=== PATIENT | male | born 1955 | race Caucasian/White ===

== ENCOUNTER → 2017-02-13 | Outpatient (CLI) | payer BC | END | disposition home or self-care (01) | LOC: Rad HDHVI 09:59 | PROVIDERS: ATTEND Internal Medicine Cardiovascular Disease | DX: I31.3 Pericardial effusion (noninflammatory) (principal); R06.02 Shortness of breath | CPT/HCPCS: 93306; 93880 ==

== ENCOUNTER → 2017-02-27 | Outpatient (CLI) | payer BC, OTHER ==
[~2017-02-27] VITALS: Ht 1 cm; Wt 0.5 kg
[~2017-02-27] MED LIST: AMINOPHYLLINE 250 MG/10 ML VL IV ONE; D5W 5% IV SCH; DIPYRIDAMOLE (5MG/ML) 10 ML VIAL IV ONE; DIPYRIDAMOLE IV SCH; SODIUM CHLORIDE 0.9% 1,000 ML IV ONE
[2017-02-27 11:30] VITALS: BP 97/52
[2017-02-27 12:00] VITALS: BP 131/80
[2017-02-27 13:48] LABS: Albumin 3.8 g/dL (3.4-5.0); Bilirubin, Total 0.5 mg/dL (0.2-1.0); Calcium 8.6 mg/dL (8.5-10.1); Total Protein 7.2 g/dL (6.4-8.2)
[2017-02-27 13:53] LABS: Basophils # (auto) 0 uL; Basophils % (auto) 0.2 % (0.0-2.0); Eosinophils # (auto) 0.1 uL; Eosinophils % (auto) 2.2 % (0.0-7.0); Hematocrit 41.4 % (41.0-53.0); Hemoglobin 13.8 g/dL (13.5-17.5); Lymphocytes # (auto) 1.4 uL; Lymphocytes % (auto) 33.5 % (10.0-50.0); Mean Corpuscular Hemoglobin 30.1 pg (28.0-32.0); Mean Corpuscular Hgb Conc. 33.3 g/dL (32.0-36.0); Mean Corpuscular Volume 90.5 fL (80.0-100.0); Mean Platelet Volume 9.6 fL (6.9-10.8); Monocytes # (auto) 0.3 uL; Monocytes % (auto) 6.2 % (0.0-12.0); Neutrophils # (auto) 2.4 uL; Neutrophils % (auto) 57.9 % (37.0-80.0); Nucleated Red Blood Cells % 0.2 %; Platelet Count (auto) 174 10^3/uL (140-450); Red Cell Distribution Width 13.8 % (11.8-14.3); White Blood Cell 4.1 10^3/uL (4.4-10.8)
== END | disposition home or self-care (01) ==
LOC: Rad HDHVI 09:52
PROVIDERS: ATTEND Internal Medicine Cardiovascular Disease
DX: I10 Essential (primary) hypertension (principal); E78.00 Pure hypercholesterolemia, unspecified; K74.1 Hepatic sclerosis; E11.9 Type 2 diabetes mellitus without complications; R97.20 Elevated prostate specific antigen [PSA]; R53.81 Other malaise; E03.9 Hypothyroidism, unspecified; D64.9 Anemia, unspecified; E55.9 Vitamin D deficiency, unspecified; D51.9 Vitamin B12 deficiency anemia, unspecified
CPT/HCPCS: 36415; 78452; 80053; 80061; 82306; 82607; 83036; 84153; 84403; 84439; 84443; 85025; 93005; 96361; 96374; 96375; A9500; G0463; J1245; 96360

== ENCOUNTER → 2018-04-15 | Outpatient (CLI) | payer MEDICARE | END | disposition home or self-care (01) | LOC: Rad HDHVI 10:03 | PROVIDERS: ATTEND Internal Medicine Cardiovascular Disease | DX: M47.892 Other spondylosis, cervical region (principal); M46.02 Spinal enthesopathy, cervical region | CPT/HCPCS: 72125 ==

== ENCOUNTER → 2019-09-09 | Outpatient (CLI) | payer MEDICARE, BC ==
[~2019-09-09] VITALS: Ht 165.1 cm; Wt 95.3 kg
[~2019-09-09] MED LIST changes: +ADENOSINE 90 MG/30 ML INJ IV ONE; -AMINOPHYLLINE 250 MG/10 ML VL IV ONE; -D5W 5% IV SCH; -DIPYRIDAMOLE (5MG/ML) 10 ML VIAL IV ONE; -DIPYRIDAMOLE IV SCH; -SODIUM CHLORIDE 0.9% 1,000 ML IV ONE
[2019-09-09 11:51] LABS: Basophils # (auto) 0 10 ^3/uL (0-0.2); Basophils % (auto) 0.5 % (0.0-2.0); Eosinophils # (auto) 0.1 10 ^3/uL (0-0.8); Eosinophils % (auto) 2.5 % (0.0-7.0); Hematocrit 42.8 % (41.0-53.0); Hemoglobin 14.2 g/dL (13.5-17.5); Lymphocytes # (auto) 1.2 10 ^3/uL (0.4-5.4); Lymphocytes % (auto) 36.4 % (10.0-50.0); Mean Corpuscular Hemoglobin 30.4 pg (28.0-32.0); Mean Corpuscular Hgb Conc. 33.3 g/dL (32.0-36.0); Mean Corpuscular Volume 91.4 fL (80.0-100.0); Monocytes # (auto) 0.2 10 ^3/uL (0-1.3); Neutrophils # (auto) 1.8 10 ^3/uL (1.6-8.6); Neutrophils % (auto) 54.6 % (37.0-80.0); Nucleated Red Blood Cells % 0.2 %; Platelet Count (auto) 154 10^3/uL (140-450); Red Blood Cells 4.68 10^6/uL (4.5-5.90); Red Cell Distribution Width 13.8 % (11.8-14.3); White Blood Cell 3.4 10^3/uL (4.4-10.8)
[2019-09-09 12:05] LABS: Albumin 3.7 g/dL (3.4-5.0); Calcium 8.4 mg/dL (8.5-10.1); Potassium 4.2 mmol/L (3.5-5.1)
[2019-09-09 12:10] LABS: BUN/Creatinine Ratio 21.2; Bilirubin, Total 0.7 mg/dL (0.2-1.0); Total Protein 7.2 g/dL (6.4-8.2)
[2019-09-09 12:43] LABS: Free T4 (Free Thyroxine) 1.02 ng/dL (0.89-1.76); Prostate Specific Antigen 0.24 ng/mL (0.0-4.0)
== END | disposition home or self-care (01) ==
LOC: Rad HDHVI 08:59
PROVIDERS: ATTEND Internal Medicine Cardiovascular Disease
DX: I11.0 Hypertensive heart disease with heart failure (principal); I50.33 Acute on chronic diastolic (congestive) heart failure; E03.9 Hypothyroidism, unspecified; K90.9 Intestinal malabsorption, unspecified; C61 Malignant neoplasm of prostate; E29.1 Testicular hypofunction; N39.0 Urinary tract infection, site not specified; D51.9 Vitamin B12 deficiency anemia, unspecified; R00.1 Bradycardia, unspecified; R06.02 Shortness of breath; R00.2 Palpitations; Z79.899 Other long term (current) drug therapy; Z00.00 Encounter for general adult medical examination without abnormal findings
CPT/HCPCS: 36415; 78452; 80053; 80061; 82306; 82607; 83036; 84153; 84403; 84439; 84443; 85025; 93017; 93306; 96374; A9500; J0153

== ENCOUNTER → 2020-06-21 | Outpatient (CLI) | payer MEDICARE, BC | END | disposition home or self-care (01) | LOC: Rad HDHVI 09:06 | PROVIDERS: ATTEND Internal Medicine Cardiovascular Disease | DX: M19.012 Primary osteoarthritis, left shoulder (principal); M25.512 Pain in left shoulder | CPT/HCPCS: 73200 ==

== ENCOUNTER → 2020-07-13 | Outpatient (CLI) | payer MEDICARE, BC ==
[2020-07-13 11:49] LABS: Urine Blood Negative /uL (Negative); Urine Specific Gravity 1.035 (1.001-1.035)
[2020-07-13 11:54] LABS: Basophils # (auto) 0 10 ^3/uL (0-0.2); Basophils % (auto) 0.1 % (0.0-2.0); Eosinophils # (auto) 0 10 ^3/uL (0-0.8); Eosinophils % (auto) 0.9 % (0.0-7.0); Hematocrit 40.2 % (41.0-53.0); Hemoglobin 14.3 g/dL (13.5-17.5); Lymphocytes # (auto) 1.6 10 ^3/uL (0.4-5.4); Lymphocytes % (auto) 31.9 % (10.0-50.0); Mean Corpuscular Hemoglobin 31.7 pg (28.0-32.0); Mean Corpuscular Hgb Conc. 35.6 g/dL (32.0-36.0); Mean Corpuscular Volume 89.2 fL (80.0-100.0); Monocytes # (auto) 0.4 10 ^3/uL (0-1.3); Monocytes % (auto) 7.7 % (0.0-12.0); Neutrophils % (auto) 59.4 % (37.0-80.0); Platelet Count (auto) 194 10^3/uL (140-450); Red Blood Cells 4.51 10^6/uL (4.5-5.90); Red Cell Distribution Width 13.9 % (11.8-14.3)
[2020-07-13 11:59] LABS: Albumin 3.9 g/dL (3.4-5.0); Calcium 8.4 mg/dL (8.5-10.1); Potassium 4.2 mmol/L (3.5-5.1)
[2020-07-13 12:03] LABS: Free T4 (Free Thyroxine) 0.92 ng/dL (0.89-1.76); Prostate Specific Antigen 0.17 ng/mL (0.0-4.0)
[2020-07-13 12:04] LABS: BUN/Creatinine Ratio 22.1; Bilirubin, Total 0.5 mg/dL (0.2-1.0); Total Protein 7.4 g/dL (6.4-8.2)
== END | disposition home or self-care (01) ==
LOC: Rad HDHVI 08:12
PROVIDERS: ATTEND Internal Medicine Cardiovascular Disease
DX: C61 Malignant neoplasm of prostate (principal); D51.3 Other dietary vitamin B12 deficiency anemia; I10 Essential (primary) hypertension; E11.9 Type 2 diabetes mellitus without complications; E55.9 Vitamin D deficiency, unspecified; D64.9 Anemia, unspecified; R00.2 Palpitations; R53.1 Weakness; R30.0 Dysuria
CPT/HCPCS: 36415; 80053; 80061; 81003; 82306; 82607; 83036; 84153; 84403; 84439; 84443; 85025; 93306

== ENCOUNTER → 2020-11-17 | Outpatient (CLI) | payer MEDICARE, BC ==
[2020-11-17 12:04] LABS: Basophils # (auto) 0 10 ^3/uL (0-0.2); Basophils % (auto) 0.4 % (0.0-2.0); Eosinophils # (auto) 0.1 10 ^3/uL (0-0.8); Eosinophils % (auto) 1.8 % (0.0-7.0); Hemoglobin 14.1 g/dL (13.5-17.5); Lymphocytes # (auto) 1.5 10 ^3/uL (0.4-5.4); Lymphocytes % (auto) 45.3 % (10.0-50.0); Mean Corpuscular Hemoglobin 31.9 pg (28.0-32.0); Mean Corpuscular Hgb Conc. 35.3 g/dL (32.0-36.0); Mean Corpuscular Volume 90.4 fL (80.0-100.0); Monocytes # (auto) 0.2 10 ^3/uL (0-1.3); Monocytes % (auto) 6.1 % (0.0-12.0); Neutrophils # (auto) 1.5 10 ^3/uL (1.6-8.6); Neutrophils % (auto) 46.4 % (37.0-80.0); Nucleated Red Blood Cells % 0.4 %; Platelet Count (auto) 154 10^3/uL (140-450); Potassium 4.5 mmol/L (3.5-5.1); Red Blood Cells 4.43 10^6/uL (4.5-5.90); Red Cell Distribution Width 13.7 % (11.8-14.3); Urine Blood Negative /uL (Negative); Urine Specific Gravity 1.024 (1.001-1.035); White Blood Cell 3.2 10^3/uL (4.4-10.8)
[2020-11-17 12:14] LABS: Albumin 3.8 g/dL (3.4-5.0); BUN/Creatinine Ratio 19.8; Bilirubin, Total 0.4 mg/dL (0.2-1.0); Calcium 8.8 mg/dL (8.5-10.1); Total Protein 7.2 g/dL (6.4-8.2)
[2020-11-17 12:17] LABS: Free T4 (Free Thyroxine) 1.01 ng/dL (0.89-1.76); Prostate Specific Antigen 0.28 ng/mL (0.0-4.0)
== END | disposition home or self-care (01) ==
LOC: CHF HDHVI 08:03
PROVIDERS: ATTEND Internal Medicine Cardiovascular Disease
DX: C61 Malignant neoplasm of prostate (principal); D51.3 Other dietary vitamin B12 deficiency anemia; I10 Essential (primary) hypertension; E11.9 Type 2 diabetes mellitus without complications; E55.9 Vitamin D deficiency, unspecified; D64.9 Anemia, unspecified; R00.2 Palpitations; R53.1 Weakness; R30.0 Dysuria
CPT/HCPCS: 36415; 80053; 80061; 81003; 82306; 82607; 83036; 84153; 84403; 84439; 84443; 85025; 85049

== ENCOUNTER → 2020-11-28 | Outpatient (CLI) | payer MEDICARE, BC ==
[~2020-11-28] VITALS: Ht 165.1 cm; Wt 102.1 kg
== END | disposition home or self-care (01) ==
LOC: Rad HDHVI 13:59
PROVIDERS: ATTEND Internal Medicine Cardiovascular Disease
DX: I34.2 Nonrheumatic mitral (valve) stenosis (principal); I10 Essential (primary) hypertension; R06.02 Shortness of breath; E78.5 Hyperlipidemia, unspecified; R07.89 Other chest pain; Z82.49 Family history of ischemic heart disease and other diseases of the circulatory system
CPT/HCPCS: 78452; 93017; 96374; A9500

== ENCOUNTER → 2021-12-19 | Outpatient (CLI) | payer MEDICARE, BC | END | disposition home or self-care (01) | LOC: Rad HDHVI 09:24 | PROVIDERS: ATTEND Internal Medicine Cardiovascular Disease | DX: M19.012 Primary osteoarthritis, left shoulder (principal); M19.011 Primary osteoarthritis, right shoulder; M25.712 Osteophyte, left shoulder; M25.711 Osteophyte, right shoulder | CPT/HCPCS: 73030 ==

== ENCOUNTER → 2023-12-30 | Outpatient (CLI) | payer MEDICARE, BC | END | disposition home or self-care (01) | LOC: Rad HDHVI 14:21 | PROVIDERS: ATTEND Internal Medicine Cardiovascular Disease | DX: I10 Essential (primary) hypertension (principal) | CPT/HCPCS: 93880; 93925 ==

== ENCOUNTER → 2024-01-24 | Outpatient (CLI) | payer MEDICARE, BC ==
[~2024-01-24] VITALS: Ht 165.1 cm; Wt 95.3 kg
[~2024-01-24] MED LIST changes: +ADENOSINE 80 MG in GIVE UN-DILUTED 0 ML IV ONE
== END | disposition home or self-care (01) ==
LOC: Rad HDHVI 08:38
PROVIDERS: ATTEND Internal Medicine Cardiovascular Disease
DX: I11.0 Hypertensive heart disease with heart failure (principal); I50.33 Acute on chronic diastolic (congestive) heart failure; E78.5 Hyperlipidemia, unspecified; E11.9 Type 2 diabetes mellitus without complications; C61 Malignant neoplasm of prostate
CPT/HCPCS: 78452; 93005; 96374; 96375; A9500; J0153

== ENCOUNTER 2024-02-09 08:49 | Emergency (ER) | payer MEDICARE, BC ==
[~2024-02-09] VITALS: Ht 165.1 cm; Wt 94.2 kg
[2024-02-09 09:54] VITALS: BP 143/81; PULSE 63; RESP 17; TEMP 98.5; O2SAT 95
== END 2024-02-09 10:21 | disposition home or self-care (01) ==
LOC: ER 08:49
DX: S61.011A Laceration without foreign body of right thumb without damage to nail, initial encounter (principal); W23.0XXA Caught, crushed, jammed, or pinched between moving objects, initial encounter; Y93.89 Activity, other specified; Y92.89 Other specified places as the place of occurrence of the external cause; Y99.8 Other external cause status

== ENCOUNTER → 2024-06-30 | Outpatient (CLI) | payer MEDICARE, BC ==
[2024-06-30 09:18] LABS: Hemoglobin 11.5 g/dL (13.5-17.5); White Blood Cell 3.3 10^3/uL (4.4-10.8)
[2024-06-30 09:22] LABS: Hematocrit 33.3 % (41.0-53.0); Mean Corpuscular Hemoglobin 30.9 pg (28.0-32.0); Mean Corpuscular Hgb Conc. 34.4 g/dL (32.0-36.0); Mean Corpuscular Volume 89.8 fL (80.0-100.0); Platelet Count (auto) 43 10^3/uL (140-450); Red Blood Cells 3.71 10^6/uL (4.5-5.90); Red Cell Distribution Width 16.7 % (11.8-14.3)
[2024-06-30 09:29] LABS: Band Neutrophils % (manual) 0; Basophils % (manual) 0 (0.0-2.0); Blast Cells 0; Eosinophils % (manual) 0 (0-7); Metamyelocytes % 0; Myelocytes % 0; Promyelocytes % 0
[2024-06-30 10:10] LABS: Lymphocytes % (manual) 45 (10.0-50.0); Monocytes % (manual) 29 (0-12); Reactive Lymphocytes 8
[2024-06-30 10:11] LABS: Platelet Estimate Decreased
[2024-06-30 10:33] LABS: Alanine Aminotransferase 12 U/L (7-40); Alkaline Phosphatase 50 U/L (46-116); Anion Gap 8 (5-15); Carbon Dioxide 28 mmol/L (20-31); Chloride 106 mmol/L (98-107); Glucose 85 mg/dL (74-106); Potassium 4.3 mmol/L (3.5-5.1); Sodium 142 mmol/L (136-145)
[2024-06-30 10:34] LABS: BUN/Creatinine Ratio 17.2 (10.0-20.0); Blood Urea Nitrogen 16 mg/dL (9-23)
[2024-06-30 10:36] LABS: Bilirubin, Total 0.6 mg/dL (0.2-1.0); Total Protein 6.8 g/dL (5.7-8.2)
[2024-06-30 10:37] LABS: Albumin 4.8 g/dL (3.2-4.8); Aspartate Aminotransferase 9 U/L (13-40)
[2024-06-30 15:19] LABS: Triglycerides 83 mg/dL (< 150)
[2024-06-30 15:20] LABS: Cholesterol 167 mg/dL (< 200)
[2024-06-30 15:21] LABS: Bilirubin, Direct 0.2 mg/dL (<0.3)
[2024-06-30 15:34] LABS: HDL Cholesterol 38 mg/dL (40-59); LDL Cholesterol 122 mg/dL (< 100)
[2024-07-01 08:07] LABS: Testosterone 387 ng/dL (264-916)
== END | disposition home or self-care (01) ==
LOC: LAB 08:05
PROVIDERS: ATTEND Internal Medicine Cardiovascular Disease
DX: C61 Malignant neoplasm of prostate (principal); I10 Essential (primary) hypertension; E11.9 Type 2 diabetes mellitus without complications; E55.9 Vitamin D deficiency, unspecified; D64.9 Anemia, unspecified; R30.0 Dysuria; R53.1 Weakness
CPT/HCPCS: 36415; 80048; 80061; 80076; 83036; 84153; 84402; 84403; 84443; 85007; 85027

== ENCOUNTER 2024-08-24 13:56 | Inpatient (IN) | payer MEDICARE, BC ==
[~2024-08-24] VITALS: Ht 165.1 cm; Wt 87.5 kg
--- NOTE | 2024-08-24 14:01 | ECG ---
[facility] Test Date: 2024-08-24 Test Time: 14:00:33 Pat Name: RENE REDMOND Department: ER Room: 0284T Gender: M B2B Appointment Setter: GP : 1955 Requested By: LUCIANA ZAIDI Order Number: [id number] Reading MD: Juan Miguel Zamora Measurements Intervals [place] Rate: 97 P: 76 VA: 43 QRS: 25 QRSD: 101 T: 56 QT: 407 QTc: 517 Interpretive Statements Sinus rhythm Paired ventricular premature complexes Short VA interval Borderline ST depression, diffuse leads Borderline prolonged QT interval Baseline wander in lead(s) II,aVR,V1,V2,V3,V4,V5,V6 Electronically Signed On 08-26-2024 21:01:15 PDT by Juan Miguel Zamora Please click the below link to view image of tracing.
--- NOTE | 2024-08-24 14:06 | ED.PDOC ---
History of Present Illness HPI Comments 69 y/o obese M, with a Hx of neuropathy, presents with relative for c/o nonradiating, sternal chest pain and shortness of breath for 2x weeks, today. Patient reports on ongoing symptoms following initial onset. He describes pain as aching in quality and rates it a 6/10 in severity, with no prior history of i n the past. Patient also c/o occasional headaches whenever he is outside in the sun for an extended duration of time. Patient endorses on FMHx of [place] through his father and brother. He denies any nausea. vomiting, fever, chills, or other associated symptoms or modifiers at this time. Chief Complaint: Chest Pain Time Seen by MD: 14:10 Primary Care Provider: unknown Reviewed Notes: Nurses Notes, Medications, Allergies Allergies: Coded Allergies: No Known Drug Allergy (Verified Allergy, Unknown, 02/27/17) Information Source: Patient Mode of Arrival: Wheelchair Severity: Moderate Timing: Weeks Duration: Since onset Prehospital treatment: None Past Medical History Past Medical History (Other): neruopathy, obesity Surgical History (Other): neck surgery Family History Family History: Reviewed,noncontributory to illness, No family hx of Cancer, No family hx of DM, No family hx of HTN, No family hx ofKidney corine, No family hx of Liver corine, No family hx of Lung corine, No family hx of Stroke, Family hx of heart corine ([place]) Social History Smoker: Non-Smoker Alcohol: Denies ETOH Use Drugs: Denies Drug Use Lives In: Home Constitutional: denies: chills, diaphoresis, fatigue, fever, malaise, sweats, weakness, others EENTM: denies: blurred vision, double vision, ear bleeding, ear discharge, ear drainage, ear pain, ear ringing, eye pain, eye redness, hearing loss, mouth pain, mouth swelling, nasal discharge, nose bleeding, nose congestion, nose pain, photophobia, tearing, throat pain, throat swelling, voice changes, others Respiratory: reports: shortness of breath; denies: cough, hemoptysis, orthopnea, SOB at rest, SOB with excertion, stridor, wheezing, others Cardiovascular: reports: chest pain; denies: dizzy spells, diaphoresis, Dyspnea on exertion, edema, irregular heart beat, left arm pain, lightheadedness, palpitations, PND, syncope, others Gastrointestinal: denies: abdomen distended, abdominal pain, blood streaked bowels, constipated, diarrhea, dysphagia, difficulty swallowing, hematemesis, melena, nausea, poor appetite, poor fluid intake, rectal bleeding, rectal pain, vomiting, others Genitourinary: denies: burning, dysuria, flank pain, frequency, hematuria, incontinence, penile discharge, penile sore, pain, testicle pain, testicle swelling, urgency, others Neurological: reports: headache; denies: dizziness, fainting, left sided numbness, left sided weakness, numbness, paresthesia, pre-existing deficit, right sided numbness, right sided weakness, seizure, speech problems, tingling, tremors, weakness, others Musculoskeletal: denies: back pain, gout, joint pain, joint swelling, muscle pain, muscle stiffness, neck pain, others Integumetry: denies: bruises, change in color, change in hair/nails, dryness, laceration, lesions, lumps, rash, wounds, others Allergic/Immunocompromised: denies: Difficulty Healing, Frequent Infections, Hives, Itching, others Hematologic/Lymphatic: denies: anemia, blood clots, easy bleeding, easy bruising, swollen glands, others Endocrine: denies: excessive hunger, excessive sweating, excessive thirst, excessive urination, flushing, intolerance to cold, intolerance to heat, unexplained weight gain, unexplained weight loss, others Psychiatric: denies: anxiety, bipolar disorder, depression, hopeless, panic disorder, schizophrenia, sleepless, suicidal, others All Other Systems: Reviewed and Negative Physical Exam General Appearance: Moderate Distress HEENT: Pale Conjuntivae (L), Pale Conjuntivae (R), Pharynx Normal, TMs Normal Neck: Full Range of Motion, Non-Tender, Normal, Normal Inspection Respiratory: Chest Non-Tender, Lungs Clear, No Accessory Muscle Use, No Respiratory Distress, Normal Breath Sounds Cardiovascular: No Edema, No JVD, No Murmur, No Gallop, Normal Peripheral Pulses, Regular Rate/Rhythm Breast Exam: Deferred Gastrointestinal: No Organomegaly, Non Tender, No Pulsatile Mass, Normal Bowel Sounds, Soft Genitalia: Deferred Pelvic: Deferred Rectal: Deferred Extremities: No calf tenderness, Normal capillary refill, No pedal edema Musculoskeletal : Apperance: Normal Neurologic: Alert, security operations center analyst II-XII nml as Tested, Motor Weakness, Normal Affect, Nor mal Mood, No Sensory Deficits Cerebellar Function: Normal Reflexes: Normal Skin: Dry, Pallor, Warm Lymphatic: No Adenopathy Was a procedure done? Was a procedure done?: No Differential Dx Considerations may include: VT, PE, ACS, URI, PNA, viral syndrome, anxiety, angina, gastritis, among others X-Ray, Labs, Meds, VS Vital Signs Date Time Temp Pulse Resp B/P (MAP) Pulse Ox O2 Delivery O2 Flow Rate FiO2 08/24/24 15:06 72 08/24/24 14:03 97.9 83 18 135/51 (79) 100 97.9 08/24/24 14:00 97 Lab Test 08/24/24 14:44 08/24/24 14:00 Range/Units Troponin I High Sensitivity 4 4 </=54 ng/L White Blood Count 3.1 L 4.4-10.8 10^3/uL Red Blood Count 1.42 L 4.5-5.90 10^6/uL Hemoglobin 4.7 *L 13.5-17.5 g/dL Hematocrit 13.3 L 41.0-53.0 % Mean Corpuscular Volume 93.7 80.0-100.0 fL Mean Corpuscular Hemoglobin 32.9 H 28.0-32.0 pg Mean Corpuscular Hemoglobin Concent 35.1 32.0-36.0 g/dL Red Cell Distribution Width 20.2 H 11.8-14.3 % Platelet Count 114 L 140-450 10^3/uL Mean Platelet Volume 8.3 6.9-10.8 fL Neutrophils (%) (Auto) 37.0-80.0 % Lymphocytes (%) (Auto) 10.0-50.0 % Monocytes (%) (Auto) 0.0-12.0 % Basophils (%) (Auto) 0.0-2.0 % Neutrophils # (Auto) 1.6-8.6 10 ^3/uL Lymphocytes # (Auto) 0.4-5.4 10 ^3/uL Monocytes # (Auto) 0-1.3 10 ^3/uL Differential Total Cells Counted 100.0 100 Neutrophils % (Manual) 6 L 37.0-80.0 Band Neutrophils % (Manual) 0 Lymphocytes % (Manual) 91 H 10.0-50.0 Monocytes % (Manual) 0 0-12 Eosinophils % (Manual) 0 0-7 Basophils % (Manual) 0 0.0-2.0 Metamyelocytes % (manual) 0 Myelocytes % (Manual) 0 Promyelocytes % (Manual) 0 Blast Cells % (Manual) 0 Reactive Lymphocytes 3 Platelet Estimate Decreased Anisocytosis (manual) Slight D-Dimer, Quantitative 0.63 H 0.0-0.49 mg/L FEU Sodium Level 140 136-145 mmol/L Potassium Level 3.8 3.5-5.1 mmol/L Chloride Level 106 98-107 mmol/L Carbon Dioxide Level 23 20-31 mmol/L Anion Gap 11 5-15 Blood Urea Nitrogen 16 9-23 mg/dL Creatinine 1.01 0.700-1.30 mg/dL Glomerular Filtration Rate Calc 80 >90 mL/min BUN/Creatinine Ratio 15.8 10.0-20.0 Serum Glucose 97 74-106 mg/dL Calcium Level 9.3 8.7-10.4 mg/dL Total Bilirubin 0.4 0.2-1.0 mg/dL Aspartate Amino Transferase (AST) 10 L 13-40 U/L Alanine Aminotransferase (ALT) < 9 7-40 U/L Alkaline Phosphatase 53 46-116 U/L B-Type Natriuretic Peptide 100.58 0-100 pg/mL Total Protein 6.8 5.7-8.2 g/dL Albumin 4.6 3.2-4.8 g/dL IV Hep-Lock was established The patient's CBC shows a hemoglobin of 4.7 and hematocrit of 13.3 The patient had thrombocytopenia at 114 The D-dimer is 0.63 which is somewhat elevated The chemistry panel is within normal limits The patient was typed and screened The patient was being transfused with 2 units of packed red blood cells We feel that the patient's chest pain is most likely secondary to ischemia from the severe anemia A cardiology consult will also be obtained The patient is being admitted at this time We discussed the findings with the patient and they are in agreement with the management. Images Reviewed?: Images reviewed and evaluated by me Time of 1ST Reevaluation: 14:40 Reevaluation 1ST: Unchanged Time of 2ND Reevaluation: 16:55 Reevaluation 2ND: Unchanged Patient Education/Counseling: Diagnosis, Treatment, Prognosis Family Education/Counseling: Diagnosis, Treatment, Prognosis Departure 1 Departure Time of Disposition: 16:56 Impression: Primary Impression: Severe anemia Additional Impression: Acute myocardial ischemia Disposition: 09 ADMITTED INPATIENT Admit to: Tele Condition: Fair Critical Care Note Critical Care Time?: Yes (45 min-critical care time only) Stability Stability form required: Yes Unstable for transfer: Telemetry monitoring (Telemetry monitoring required), ED Physician Assesment (Clinical assesment) Heart Score Heart Score: Heart Score Response (Comments) Value History Slightly Suspicious 0 EKG Normal 0 Age >65 2 Risk Factors 1 or 2 risk factors 1 Troponin Normal limit 0 Total 3 I personally scribed for LUCIANA ZAIDI MD ([email or web address]) on 08/24/24 at 14:06. Electronically submitted by Jeremi Ferreira ([email or web address]). I personally scribed for LUCIANA ZAIDI MD ([email or web address]) on 08/24/24 at 14:19. Electronically submitted by Jeremi Ferreira ([email or web address]). LUCIANA ZAIDI MD Aug 24, 2024 14:06
[2024-08-24] MEDS: ASPirin 81 mg TAB PO ONE (14:15)
[2024-08-24 14:23] LABS: Red Cell Distribution Width 20.2 % (11.8-14.3); White Blood Cell 3.1 10^3/uL (4.4-10.8)
[2024-08-24 14:24] LABS: Hematocrit 13.3 % (41.0-53.0); Mean Corpuscular Hemoglobin 32.9 pg (28.0-32.0); Mean Corpuscular Hgb Conc. 35.1 g/dL (32.0-36.0); Mean Corpuscular Volume 93.7 fL (80.0-100.0); Platelet Count (auto) 114 10^3/uL (140-450); Red Blood Cells 1.42 10^6/uL (4.5-5.90)
[2024-08-24 14:32] LABS: Hemoglobin 4.7 g/dL (13.5-17.5)
--- NOTE | 2024-08-24 14:33 | DVH ---
EXAM: XY CHEST TWO VIEWS ROUTINE CLINICAL HISTORY: cp COMPARISON: RSHD2 on DOS: 12/19/21 TECHNIQUE: Frontal and lateral view of the chest was obtained FINDINGS: Lines and Tubes: None Lungs: No focal consolidation. Pleura: No effusion. No pneumothorax. Cardiomediastinal contours: Unremarkable Bones: No acute osseous abnormality. IMPRESSION: No acute cardiopulmonary disease.
[2024-08-24 14:34] LABS: Band Neutrophils % (manual) 0; Basophils % (manual) 0 (0.0-2.0); Blast Cells 0; Eosinophils % (manual) 0 (0-7); Metamyelocytes % 0; Monocytes % (manual) 0 (0-12); Myelocytes % 0; Promyelocytes % 0
[2024-08-24 14:47] LABS: Lymphocytes % (manual) 91 (10.0-50.0); Reactive Lymphocytes 3
[2024-08-24 14:48] LABS: Anisocytosis Slight; Platelet Estimate Decreased
[2024-08-24 14:55] LABS: Alanine Aminotransferase < 9 U/L (7-40); Albumin 4.6 g/dL (3.2-4.8); Alkaline Phosphatase 53 U/L (46-116); Anion Gap 11 (5-15); Aspartate Aminotransferase 10 U/L (13-40); BUN/Creatinine Ratio 15.8 (10.0-20.0); Bilirubin, Total 0.4 mg/dL (0.2-1.0); Blood Urea Nitrogen 16 mg/dL (9-23); Calcium 9.3 mg/dL (8.7-10.4); Carbon Dioxide 23 mmol/L (20-31); Chloride 106 mmol/L (98-107); Glucose 97 mg/dL (74-106); Potassium 3.8 mmol/L (3.5-5.1); Sodium 140 mmol/L (136-145); Total Protein 6.8 g/dL (5.7-8.2)
--- NOTE | 2024-08-24 15:07 | ECG ---
[facility] Test Date: 2024-08-24 Test Time: 15:06:45 Pat Name: RENE REDMOND Department: ER Room: 0284T Gender: M X Ray Physician: TRISTEN : 1955 Requested By: LUCIANA ZAIDI Order Number: [id number] Reading MD: Juan Miguel Zamora Measurements Intervals [place] Rate: 72 P: 58 IN: 208 QRS: 29 QRSD: 99 T: 39 QT: 414 QTc: 454 Interpretive Statements Sinus rhythm Electronically Signed On 08-26-2024 21:02:09 PDT by Juan Miguel Zamora Please click the below link to view image of tracing.
[2024-08-24 17:00] VITALS: PULSE 72; RESP 12; O2SAT 100
[2024-08-24] MEDS ORDERED: NITROGLYCERIN 0.4 MG SL TAB SL PRN (18:45)
[2024-08-24] MEDS ORDERED: ACETAMINOPHEN 325 MG TAB PO PRN (18:45)
[2024-08-24] MEDS ORDERED: MORPHINE SULFATE INJ 2 MG/ml SYRG IV PRN (18:45)
[2024-08-24] MEDS ORDERED: ONDANSETRON HCL 4 MG/2 ML VIAL IV PRN (18:45)
--- NOTE | 2024-08-24 18:50 | DVHHP2 ---
Admitting Diagnosis: Chest pain History of Present Illness 69 y/o obese M, with a Hx of neuropathy, presents with relative for c/o nonradiating, sternal chest pain and shortness of breath for 2x weeks, today. Patient reports on ongoing symptoms following initial onset. He describes pain as aching in quality and rates it a 6/10 in severity, with no prior history of in the past. Patient also c/o occasional headaches whenever he is outside in the sun for an extended duration of time. Patient endorses on FMHx of [place] through his father and brother. He denies any nausea. vomiting, fever, chills, or other associated symptoms or modifiers at this time. Past Medical History (Other): neruopathy, obesity Surgical History (Other): neck surgery Family History Family History: Reviewed,noncontributory to illness, No family hx of Cancer, No family hx of DM, No family hx of HTN, No family hx ofKidney corine, No family hx of Liver corine, No family hx of Lung corine, No family hx of Stroke, Family hx of heart corine ([place]) Social History Smoker: Non-Smoker Alcohol: Denies ETOH Use Drugs: Denies Drug Use Lives In: Home Allergies: Coded Allergies: No Known Drug Allergy (Verified Allergy, Unknown, 02/27/17) Vital Signs Vital Signs Date Time Temp Pulse Resp B/P (MAP) Pulse Ox O2 Delivery O2 Flow Rate FiO2 08/24/24 15:06 72 08/24/24 14:03 97.9 18 135/51 (79) 100 97.9 Physical Exam Generally 69 years old male, well nourished well developed. No apparent distress HEENT-atraumatic, normocephalic Heart-regular rate and rhythm Lungs clear to auscultate bilaterally Abdomen soft nontender nondistended Musculoskeletal-no edema cyanosis Neuro-AO x3, no focal deficits Results Labs Test 08/24/24 14:44 08/24/24 14:00 Range/Units Troponin I High Sensitivity 4 </=54 ng/L White Blood Count 3.1 L 4.4-10.8 10^3/uL Red Blood Count 1.42 L 4.5-5.90 10^6/uL Hemoglobin 4.7 *L 13.5-17.5 g/dL Hematocrit 13.3 L 41.0-53.0 % Mean Corpuscular Volume 93.7 80.0-100.0 fL Mean Corpuscular Hemoglobin 32.9 H 28.0-32.0 pg Mean Corpuscular Hemoglobin Concent 35.1 32.0-36.0 g/dL Red Cell Distribution Width 20.2 H 11.8-14.3 % Platelet Count 114 L 140-450 10^3/uL Mean Platelet Volume 8.3 6.9-10.8 fL Neutrophils (%) (Auto) 37.0-80.0 % Lymphocytes (%) (Auto) 10.0-50.0 % Monocytes (%) (Auto) 0.0-12.0 % Basophils (%) (Auto) 0.0-2.0 % Neutrophils # (Auto) 1.6-8.6 10 ^3/uL Lymphocytes # (Auto) 0.4-5.4 10 ^3/uL Monocytes # (Auto) 0-1.3 10 ^3/uL Differential Total Cells Counted 100.0 100 Neutrophils % (Manual) 6 L 37.0-80.0 Band Neutrophils % (Manual) 0 Lymphocytes % (Manual) 91 H 10.0-50.0 Monocytes % (Manual) 0 0-12 Eosinophils % (Manual) 0 0-7 Basophils % (Manual) 0 0.0-2.0 Metamyelocytes % (manual) 0 Myelocytes % (Manual) 0 Promyelocytes % (Manual) 0 Blast Cells % (Manual) 0 Reactive Lymphocytes 3 Platelet Estimate Decreased Anisocytosis (manual) Slight D-Dimer, Quantitative 0.63 H 0.0-0.49 mg/L FEU Sodium Level 140 136-145 mmol/L Potassium Level 3.8 3.5-5.1 mmol/L Chloride Level 106 98-107 mmol/L Carbon Dioxide Level 23 20-31 mmol/L Anion Gap 11 5-15 Blood Urea Nitrogen 16 9-23 mg/dL Creatinine 1.01 0.700-1.30 mg/dL Glomerular Filtration Rate Calc 80 >90 mL/min BUN/Creatinine Ratio 15.8 10.0-20.0 Serum Glucose 97 74-106 mg/dL Calcium Level 9.3 8.7-10.4 mg/dL Total Bilirubin 0.4 0.2-1.0 mg/dL Aspartate Amino Transferase (AST) 10 L 13-40 U/L Alanine Aminotransferase (ALT) < 9 7-40 U/L Alkaline Phosphatase 53 46-116 U/L B-Type Natriuretic Peptide 100.58 0-100 pg/mL Total Protein 6.8 5.7-8.2 g/dL Albumin 4.6 3.2-4.8 g/dL Primary Diagnosis Chest pain rule out ACS Severe anemia requiring blood transfusion Plan Patient states after turning 68 patient began to notice that he is weaker overall Patient denies any rectal bleeding, melena, hemoptysis diet Check ferritin, iron panel , B12 and folate , reticulocyte count. does not recall any recent colonoscopy Transfuse in ED Hemoglobin goal greater than seven Troponin negative chest pain has resolved. EKG sinus rhythm Check echo of the heart rule out ACS Cardiac diet Full code SCD for DVT prophylaxis GI prophylaxis needed Plan discussed with: Patient Problems List: (1) Acute myocardial ischemia Status: Acute (2) Severe anemia Status: Acute Date of Service: Aug 24, 2024 Billing Provider: RUDOLPH ZAPATA MD Common Visit Codes: [id number] INP/OBS CARE (HIGH) RUDOLPH ZAPATA MD Aug 24, 2024 18:50
[2024-08-24] MEDS: IOHEXOL 350 MG/ML 100ML IJ ONE (19:01)
[2024-08-24 19:43] LABS: % Iron Saturation 48.3 % (20-55)
[2024-08-24 20:01] LABS: Ferritin 590.1 ng/mL (22-322); Folate (Folic Acid) 14.18 ng/mL (>5.38)
--- NOTE | 2024-08-24 20:03 | DVH ---
PROCEDURE: CT CT ANGIO CHEST CONTRAST 08/24/2024 07:11 PM INDICATION: Elevated D-dimer rule out PE COMPARISON: Chest radiograph dated 08/24/2024 TECHNIQUE: Coverage: Thorax IV contrast: Administered Phases: Arterial Multiplanar 3-D Maximum Intensity Projection images (MIP) reconstructions were created by the technlissy guan in the coronal and sagittal planes as part of the CT angiography protocol. Adverse events: None Medication laboratory values were reviewed to verify the patient meets criteria for contrast administ ration. All CT scans at this medical facility are performed using dose modulation techniques as appropriate t o a performed exam including the following: Automated exposure control was utilized; adjustment of th e MA and/or KV according to patient size; and use of iterative reconstruction technique. Radiation dose: CTDIvol 26.9 mGy, DLP 1064.27 mGy*cm. FINDINGS: Cardiovascular: No evidence of acute or chronic pulmonary emboli identified. Aorta is normal in calib er. The heart is normal in size. Pericardial effusion noted. Lungs: No lobar consolidation. Bibasilar subsegmental atelectasis. No pleural effusion. No pneumotho rax. The airways are patent. Thyroid: Unremarkable. Esophagus: Unremarkable. Lymphatics: No hilar lymphadenopathy. A 3.1 cm noncalcified nodule seen in the prevascular space. Bones/soft tissues: No acute abnormality. Upper abdomen: No acute abnormality. A subcentimeter hypodense left hepatic lobe lesion [facility], incompletely evaluated in this exam, most likely a benign cyst. Further evaluation by ultra sound could be completed if clinically indicated. Other: None. IMPRESSION: 1. No evidence of acute pulmonary emboli. 2. Bibasilar subsegmental atelectasis. 3. A 3 cm perivascular space nodule most likely lymphadenopathy. Recommend further evaluation with est CT scan in 3 months.
[2024-08-24 20:14] VITALS: BP 123/53; PULSE 71; RESP 12; TEMP 97.8
[2024-08-24 20:30] VITALS: BP 126/62; PULSE 73; RESP 11; TEMP 98.8
[2024-08-24] MEDS: SODIUM CHLOR 0.9% PF (SALINE LOCK) 10ML VIAL/SYR IV SCH (22:03)
[2024-08-24 22:10] VITALS: BP 120/41; PULSE 72; RESP 11; TEMP 98.4
[2024-08-24 22:35] VITALS: BP 128/42; PULSE 73; RESP 11; TEMP 98.2
[2024-08-24] MEDS: HYDROcodone-ACET 5/325MG TAB PO PRN (22:46)
[2024-08-24 22:55] VITALS: BP 117/50; PULSE 69; RESP 13; TEMP 98.2
[2024-08-25] VITALS (13 sets, daily range): BP systolic 112–139; BP diastolic 46–90; PULSE 72–82; RESP 10–18; TEMP 97.1–99; O2SAT 94–99
[2024-08-25] MEDS: LIDOCAINE 5% TOPICAL PATCH TOP ONE (02:02)
[2024-08-25 06:00] LABS: Hematocrit 13.4 % (41.0-53.0); Red Blood Cells 1.44 10^6/uL (4.5-5.90); White Blood Cell 2.1 10^3/uL (4.4-10.8)
[2024-08-25 06:02] LABS: Mean Corpuscular Hgb Conc. 34.5 g/dL (32.0-36.0); Mean Corpuscular Volume 92.8 fL (80.0-100.0); Platelet Count (auto) 97 10^3/uL (140-450); Red Cell Distribution Width 19.8 % (11.8-14.3)
[2024-08-25 06:14] LABS: Albumin 4.3 g/dL (3.2-4.8); Alkaline Phosphatase 47 U/L (46-116); Anion Gap 10 (5-15); BUN/Creatinine Ratio 17.3 (10.0-20.0); Bilirubin, Total 0.5 mg/dL (0.2-1.0); Blood Urea Nitrogen 14 mg/dL (9-23); Carbon Dioxide 23 mmol/L (20-31); Chloride 106 mmol/L (98-107); Glucose 95 mg/dL (74-106); Potassium 3.9 mmol/L (3.5-5.1); Sodium 139 mmol/L (136-145); Total Protein 6.5 g/dL (5.7-8.2)
[2024-08-25 06:15] LABS: Alanine Aminotransferase < 9 U/L (7-40); Aspartate Aminotransferase 11 U/L (13-40)
[2024-08-25 06:33] LABS: Band Neutrophils % (manual) 0; Basophils % (manual) 0 (0.0-2.0); Eosinophils % (manual) 0 (0-7); Hemoglobin 4.6 g/dL (13.5-17.5); Metamyelocytes % 0; Myelocytes % 0; Promyelocytes % 0
[2024-08-25 08:59] LABS: Platelet Estimate Decreased
--- NOTE | 2024-08-25 15:30 | DVHPN2 ---
Subjective Patient reports generalized weakness. Reviewed: Care Plan, H&P, Medications Changes from previous H/P or p: No Changes General: Per HPI Objective Vitals Vital Signs Date Time Temp Pulse Resp B/P (MAP) Pulse Ox O2 Delivery O2 Flow Rate FiO2 08/25/24 13:20 97.6 75 14 112/47 97.6 08/25/24 09:45 97 08/25/24 08:38 Room Air* 0 N/A Nasal Cannula* Intake/Output Intake and Output 08/25/24 06:59 Intake Total 1200 ml Output Total 0 ml Balance 1200 ml Intake Oral 0 ml Tube Feeding 0 ml Blood Product 1200 ml Other 0 ml Output Urine Total 0 ml General Appearance: Alert, Oriented X3, Cooperative, mild distress HEENT: Atraumatic, PERRLA Lungs: Clear to auscultation, Normal air movement Cardiovascular: Normal S1, Normal S2 Abdomen: Normal bowel sounds, Soft, No tenderness, No hepatospenomegaly Back: Flank Tenderness, Midline Tenderness Extremities: No clubbing, No cyanosis Neuro: Normal gait, Normal speech Skin: Dry, Intact Psych/Mental Status: Mental status NL, Mood NL Medications Current Medications Medications Dose Ordered Sig/Issa Route Start Time Stop Time Status Last Admin Dose Admin Sodium Chloride 10 ml Q8HR IV 08/24/24 22:00 08/25/24 14:14 10 ML Acetaminophen 650 mg Q6HP PRN PO 08/24/24 18:45 Acetaminophen/ Hydrocodone Bitart 1 tab Q4HP PRN PO 08/24/24 18:45 08/24/24 22:46 1 TAB Hydromorphone HCl 0.5 mg Q4HP PRN IV 08/24/24 18:45 Ondansetron HCl 4 mg Q4HP PRN IV 08/24/24 18:45 Nitroglycerin 0.4 mg Q5MINP PRN SL 08/24/24 18:45 Morphine Sulfate 2 mg Q30M PRN IV 08/24/24 18:45 Pantoprazole Sodium 40 mg DAILY IV 08/26/24 10:00 UNV Laboratory Results Laboratory Tests 08/25/24 05:10 Chemistry Test 08/25/24 05:10 Albumin 4.3 g/dL (3.2-4.8) Calcium Level 9.0 mg/dL (8.7-10.4) Total Protein 6.5 g/dL (5.7-8.2) LFT Test 08/25/24 05:10 Alanine Aminotransferase (ALT) < 9 U/L (7-40) Alkaline Phosphatase 47 U/L (46-116) Aspartate Amino Transferase (AST) 11 U/L (13-40) L Total Bilirubin 0.5 mg/dL (0.2-1.0) Labs and/or images reviewed: Labs reviewed by me, Image(s) reviewed by me Assessment/Plan Assessment/Plan Impression: -chest pain -pancytopenia -chronic pain syndrome -history of spinal surgery -obesity Plan: -patient received 2 units PRBCs without any improvement with the patient was anemia. Long discussion made with the patient with regards to current symptoms. Patient denies having any signs of GI bleeding. Patient noted to have lymphocytosis, decreased neutrophils. -hematology consultation -check LDH, vitamin-D, B12, folic acid, haptoglobin, direct indirect Ranjana test -continue with additional 2 units PRBC -peripheral stain -repeat labs in a.m. -transferred to telemetry floor Total time spent with patient discussing and formulating plan of care: 35 minutes. This medical document was created using an electronic medical record system with [employer] dictation system. Although this document has been carefully reviewed, there may still be some phonetic and typographical errors. These areas are purely typographical due to imperfections of the software programs, and do not reflect any compromise in the patient's medical care. Plan discussed with: Patient, Other (RN) My Orders Orders - ANTHONY DIAZ POSTING SPECIALIST Procedure Category Date Status Time Gastric Occult Blood LAB 08/25/24 Logged 14:00 Pantoprazole PHA 08/26/24 Logged (Protonix) 10:00 Ramsay Stain Slide LAB 08/25/24 In Process 14:48 *Consult Dr. Whitehead CONS 08/25/24 Transmitted [place] 14:48 Direct Ranjana BBK 08/25/24 Logged 14:48 Vitamin B1 (Thiamine) LAB 08/25/24 Logged 14:48 Vitamin D 25-Hydroxy LAB 08/25/24 Logged D2 + D3 14:48 Haptoglobin LAB 08/25/24 Logged 14:48 Urinalysis LAB 08/25/24 Logged 14:48 * Hematology/Oncology CONS 08/25/24 Transmitted Consult 14:53 Transfer Orders XFER 08/25/24 Transmitted 15:16 Date of Service: Aug 25, 2024 Billing Provider: ANTHONY DIAZ NP Common Visit Codes: [id number] INP/OBS CARE(HIGH) ANTHONY DIAZ NP Aug 25, 2024 15:30
[2024-08-25 20:27] LABS: Hematocrit 20.8 % (41.0-53.0); Hemoglobin 7.1 g/dL (13.5-17.5)
[2024-08-26] VITALS (8 sets, daily range): BP systolic 113–131; BP diastolic 61–83; PULSE 64–77; RESP 18; TEMP 97.9–98.6; O2SAT 96–99
[2024-08-26 06:29] LABS: White Blood Cell 2.2 10^3/uL (4.4-10.8)
[2024-08-26 06:34] LABS: Hematocrit 21.4 % (41.0-53.0); Hemoglobin 7.4 g/dL (13.5-17.5); Mean Corpuscular Hemoglobin 31.3 pg (28.0-32.0); Mean Corpuscular Hgb Conc. 34.5 g/dL (32.0-36.0); Mean Corpuscular Volume 90.7 fL (80.0-100.0); Platelet Count (auto) 99 10^3/uL (140-450); Red Blood Cells 2.36 10^6/uL (4.5-5.90); Red Cell Distribution Width 18.6 % (11.8-14.3)
[2024-08-26 06:52] LABS: Band Neutrophils % (manual) 0; Basophils % (manual) 0 (0.0-2.0); Eosinophils % (manual) 0 (0-7); Metamyelocytes % 0; Myelocytes % 0; Promyelocytes % 0; Reactive Lymphocytes 0
[2024-08-26 06:54] LABS: Alanine Aminotransferase 10 U/L (7-40); Albumin 4.4 g/dL (3.2-4.8); Alkaline Phosphatase 50 U/L (46-116); Anion Gap 10 (5-15); Aspartate Aminotransferase 15 U/L (13-40); BUN/Creatinine Ratio 15.4 (10.0-20.0); Blood Urea Nitrogen 12 mg/dL (9-23); Calcium 9.3 mg/dL (8.7-10.4); Carbon Dioxide 23 mmol/L (20-31); Glucose 97 mg/dL (74-106); Potassium 3.6 mmol/L (3.5-5.1); Sodium 142 mmol/L (136-145); Total Protein 6.4 g/dL (5.7-8.2)
[2024-08-26 06:55] LABS: Bilirubin, Total 0.9 mg/dL (0.2-1.0)
[2024-08-26 06:59] LABS: Chloride 109 mmol/L (98-107)
[2024-08-26 08:07] LABS: Haptoglobin 271 mg/dL (34-355)
--- NOTE | 2024-08-26 10:00 | DVHPN2 ---
Subjective Patient reports generalized weakness. Reviewed: Care Plan, H&P, Medications Changes from previous H/P or p: No Changes General: Per HPI Objective Vitals Vital Signs Date Time Temp Pulse Resp B/P (MAP) Pulse Ox O2 Delivery O2 Flow Rate FiO2 08/26/24 09:02 98.2 69 18 123/61 (81) 99 98.2 08/25/24 20:00 Room Air* 0 21 Intake/Output Intake and Output 08/26/24 07:00 Intake Total 1550 ml Output Total 0 ml Balance 1550 ml Intake Oral 350 ml Blood Product 1200 ml Other 0 ml Output Urine Total 0 ml # Voids 2 # Bowel Movements 1 General Appearance: Alert, Oriented X3, Cooperative, mild distress HEENT: Atraumatic, PERRLA Lungs: Clear to auscultation, Normal air movement Cardiovascular: Normal S1, Normal S2 Abdomen: Normal bowel sounds, Soft, No tenderness, No hepatospenomegaly Back: Flank Tenderness, Midline Tenderness Extremities: No clubbing, No cyanosis Neuro: Normal gait, Normal speech Skin: Dry, Intact Psych/Mental Status: Mental status NL, Mood NL Medications Current Medications Medications Dose Ordered Sig/Issa Route Start Time Stop Time Status Last Admin Dose Admin Sodium Chloride 10 ml Q8HR IV 08/24/24 22:00 08/26/24 05:04 10 ML Acetaminophen 650 mg Q6HP PRN PO 08/24/24 18:45 Acetaminophen/ Hydrocodone Bitart 1 tab Q4HP PRN PO 08/24/24 18:45 08/24/24 22:46 1 TAB Hydromorphone HCl 0.5 mg Q4HP PRN IV 08/24/24 18:45 Ondansetron HCl 4 mg Q4HP PRN IV 08/24/24 18:45 Nitroglycerin 0.4 mg Q5MINP PRN SL 08/24/24 18:45 Morphine Sulfate 2 mg Q30M PRN IV 08/24/24 18:45 Pantoprazole Sodium 40 mg DAILY IV 08/26/24 10:00 Alprazolam 0.25 mg Q8HP PRN PO 08/26/24 10:00 UNV Laboratory Results Laboratory Tests 08/26/24 05:18 Chemistry Test 08/26/24 05:18 Albumin 4.4 g/dL (3.2-4.8) Calcium Level 9.3 mg/dL (8.7-10.4) Total Protein 6.4 g/dL (5.7-8.2) LFT Test 08/26/24 05:18 Alanine Aminotransferase (ALT) 10 U/L (7-40) Alkaline Phosphatase 50 U/L (46-116) Aspartate Amino Transferase (AST) 15 U/L (13-40) Total Bilirubin 0.9 mg/dL (0.2-1.0) Labs and/or images reviewed: Labs reviewed by me, Image(s) reviewed by me Assessment/Plan Assessment/Plan Impression: -chest pain -pancytopenia -chronic pain syndrome -history of spinal surgery -obesity Plan: -events: H&H improved after 4th unit PRBC. Continues to have leukopenia, thrombocytopenia. Haptoglobin, LDH noncontributory. Ranjana test negative. Discussed with the patient the need for bone marrow biopsy. Patient somewhat challenging, difficult to treat due to his behaviors. Also discussed with his the need for bone marrow biopsy. They are both in agreement. -hematology consultation -check LDH, vitamin-D, B12, folic acid, haptoglobin, direct indirect Ranjana test -continue with additional 2 units PRBC -peripheral stain -repeat labs in a.m. Total time spent with patient discussing and formulating plan of care: 35 minutes. This medical document was created using an electronic medical record system with [employer] dictation system. Although this document has been carefully reviewed, there may still be some phonetic and typographical errors. These areas are purely typographical due to imperfections of the software programs, and do not reflect any compromise in the patient's medical care. Plan discussed with: Patient, Other (RN) My Orders Orders - ANTHONY DIAZ [employer] Procedure Category Date Status Time Gastric Occult Blood LAB 08/25/24 Logged 14:00 Pantoprazole PHA 08/26/24 In Process (Protonix) 10:00 *Consult Dr. Whitehead CONS 08/25/24 Transmitted [place] 14:48 Vitamin B1 (Thiamine) LAB 08/25/24 In Process 14:48 Vitamin D 25-Hydroxy LAB 08/25/24 In Process D2 + D3 14:48 Haptoglobin LAB 08/25/24 In Process 14:48 Urinalysis LAB 08/25/24 Logged 14:48 * Hematology/Oncology CONS 08/25/24 Transmitted Consult 14:53 Transfer Orders XFER 08/25/24 Transmitted 15:16 * Radiologist Consult CONS 08/26/24 Transmitted 09:54 Alprazolam Tablet PHA 08/26/24 Logged (Xanax Tablet) 10:00 Date of Service: Aug 26, 2024 Billing Provider: ANTHONY DIAZ NP Common Visit Codes: [id number] INP/OBS CARE(HIGH) ANTHONY DIAZ NP Aug 26, 2024 10:00
[2024-08-26] MEDS: PANTOPRAZOLE 40 MG/10 ML VIAL INJ IV SCH (10:38)
[2024-08-26] MEDS: LIDOCAINE 2%HCL (LOCAL ANESTH.) INJ 10ml MDV ONE (10:52)
[2024-08-26 11:01] LABS: Lymphocytes % (manual) 53 (10.0-50.0)
[2024-08-26 11:02] LABS: Monocytes % (manual) 4 (0-12)
[2024-08-26 11:03] LABS: Blast Cells 34
[2024-08-26 11:04] LABS: Reactive Lymphocytes 5
[2024-08-26 11:13] LABS: INR 1.09 (0.9-1.15); Partial Thromboplastin Time 25.9 SEC (24.5-34.5); Prothrombin Time 11.5 sec (9.3-11.8)
[2024-08-26 11:50] LABS: Blast Cells 58; Lymphocytes % (manual) 29 (10.0-50.0); Monocytes % (manual) 5 (0-12)
[2024-08-26 11:51] LABS: Large Platelets FEW; Platelet Estimate Decreased
--- NOTE | 2024-08-26 13:02 | DVHPN2 ---
Progress Note - Dictate Date Seen: Aug 25, 2024 Medical Necessity Reason Pt with a Central, PICC or Fol: No Subjective PT WITH CHEST PAIN PANCYTOPENIA ? MYELODYSPLASTIC SYNDROME/ LEUKEMIA CHRONIC PAIN LUCIANO HX OF HTN STRESS CARDIOLITE NL ECHO EF >55% vital signs Vital Sign Date Time Temp Pulse Resp B/P (MAP) Pulse Ox O2 Delivery O2 Flow Rate FiO2 08/26/24 09:02 98.2 69 18 123/61 (81) 99 98.2 08/25/24 20:00 Room Air* 0 21 Total Intake and Output 08/25/24 08/25/24 08/26/24 15:00 23:00 07:00 Intake Total 600 ml 600 ml 350 ml Output Total 0 ml 0 ml Balance 600 ml 600 ml 350 ml medications Current Medications Medications Dose Ordered Sig/Issa Route Start Time Stop Time Status Last Admin Dose Admin Sodium Chloride 10 ml Q8HR IV 08/24/24 22:00 08/26/24 05:04 10 ML Acetaminophen 650 mg Q6HP PRN PO 08/24/24 18:45 Acetaminophen/ Hydrocodone Bitart 1 tab Q4HP PRN PO 08/24/24 18:45 08/24/24 22:46 1 TAB Hydromorphone HCl 0.5 mg Q4HP PRN IV 08/24/24 18:45 Ondansetron HCl 4 mg Q4HP PRN IV 08/24/24 18:45 Nitroglycerin 0.4 mg Q5MINP PRN SL 08/24/24 18:45 Morphine Sulfate 2 mg Q30M PRN IV 08/24/24 18:45 Pantoprazole Sodium 40 mg DAILY IV 08/26/24 10:00 08/26/24 10:38 40 MG Alprazolam 0.25 mg Q8HP PRN PO 08/26/24 10:00 UNV laboratory and microbiology Laboratory Tests 08/26/24 05:18 Test 08/26/24 05:18 Range/Units Serum Glucose 97 74-106 mg/dL Problem List CHEST PAIN PANCYTOPENIA ? MYELODYSPLASTIC SYNDROME/ LEUKEMIA CHRONIC PAIN LUCIANO HX OF HTN STRESS CARDIOLITE NL ECHO EF >55% Assessment/Plan HEMATOLOGY CONSULT BONE MARROW BIOPSY TRANSFUSE NON CARDIAC CHEST PAIN SECONDARY TO SEVERE ANEMIA HIGH OUTPUT SYNDROME REVERSE ISOLATION Plan discussed with: Patient, Spouse Critical Care Time(min): 35 CC Plasma Assessment Blood Product Administration S: 09 EMILY MUKHERJEE MD Aug 26, 2024 13:02
[2024-08-26] MEDS: MIDAZOLAM HCL 2MG/2ML 2ml VIAL (1mg/ml) IV ONE (13:30)
[2024-08-26] MEDS: fentaNYL CITRATE 100 MCG/2 ML VL IV ONE (13:30)
--- NOTE | 2024-08-26 15:09 | DVH ---
CT PELVIS WO CONTRAST, HISTORY: BONE MARROW BX COMPARISON: None PROCEDURE: Informed consent and time-out was performed before the procedure. Conscious sedation was p erformed by the interventional radiology nurse. The left posterior pelvic bone was marked, sterilized , draped, and locally anesthetized using approximately 8 ml of 1% lidocaine. Axial CT images were use d for localization. A 11 gauge [employer] Bone Biopsy kit was used to take 12 mL aspirate and 1 core. The biopsy needle was then removed. No immediate complications noted. FINDINGS: Axial CT images demonstrates biopsy needle within the left posterior pelvic bone. IMPRESSION: Successful CT-guided biopsy of the left posterior pelvic bone.
[2024-08-26] MEDS: HYDROmorphone HCL 2 MG/ML VL/or syr IV PRN (17:11)
[2024-08-26 22:23] LABS: Hematocrit 22.1 % (41.0-53.0); Hemoglobin 7.6 g/dL (13.5-17.5)
[2024-08-27] VITALS (7 sets, daily range): BP systolic 121–133; BP diastolic 61–73; PULSE 65–78; RESP 18; TEMP 97.6–98.7; O2SAT 94–99
[2024-08-27 07:08] LABS: Alanine Aminotransferase 14 U/L (7-40); Albumin 4.4 g/dL (3.2-4.8); Alkaline Phosphatase 50 U/L (46-116); Anion Gap 12 (5-15); Aspartate Aminotransferase 17 U/L (13-40); BUN/Creatinine Ratio 19.7 (10.0-20.0); Bilirubin, Total 0.9 mg/dL (0.2-1.0); Blood Urea Nitrogen 15 mg/dL (9-23); Calcium 9.4 mg/dL (8.7-10.4); Carbon Dioxide 21 mmol/L (20-31); Glucose 92 mg/dL (74-106); Potassium 3.5 mmol/L (3.5-5.1); Sodium 142 mmol/L (136-145); Total Protein 6.5 g/dL (5.7-8.2)
[2024-08-27 07:09] LABS: Chloride 109 mmol/L (98-107)
[2024-08-27 07:14] LABS: Hemoglobin 7.4 g/dL (13.5-17.5); Platelet Count (auto) 100 10^3/uL (140-450)
[2024-08-27 07:18] LABS: Hematocrit 21.3 % (41.0-53.0); Mean Corpuscular Hemoglobin 30.7 pg (28.0-32.0); Mean Corpuscular Hgb Conc. 34.5 g/dL (32.0-36.0); Mean Corpuscular Volume 88.9 fL (80.0-100.0); Red Cell Distribution Width 18.2 % (11.8-14.3)
[2024-08-27 07:22] LABS: White Blood Cell 1.7 10^3/uL (4.4-10.8)
[2024-08-27 07:23] LABS: Band Neutrophils % (manual) 0; Basophils % (manual) 0 (0.0-2.0); Eosinophils % (manual) 0 (0-7); Metamyelocytes % 0; Myelocytes % 0; Promyelocytes % 0; Reactive Lymphocytes 0
[2024-08-27 08:09] LABS: Urine Bacteria None Seen /hpf (None Seen)
--- NOTE | 2024-08-27 08:19 | DVHPN2 ---
Progress Note - Dictate Date Seen: Aug 27, 2024 Medical Necessity Reason Pt with a Central, PICC or Fol: No Subjective PT WITH CHEST PAIN PANCYTOPENIA ? MYELODYSPLASTIC SYNDROME/ LEUKEMIA CHRONIC PAIN LUCIANO HX OF HTN STRESS CARDIOLITE NL ECHO EF >55% vital signs Vital Sign Date Time Temp Pulse Resp B/P (MAP) Pulse Ox O2 Delivery O2 Flow Rate FiO2 08/27/24 05:00 98.7 77 18 121/68 (85) 98 98.7 08/26/24 20:00 Room Air* 0 21 Total Intake and Output 08/26/24 08/26/24 08/27/24 15:00 23:00 07:00 Intake Total 1000 ml 250 ml Balance 1000 ml 250 ml medications Current Medications Medications Dose Ordered Sig/Issa Route Start Time Stop Time Status Last Admin Dose Admin Sodium Chloride 10 ml Q8HR IV 08/24/24 22:00 08/27/24 05:50 10 ML Acetaminophen 650 mg Q6HP PRN PO 08/24/24 18:45 Acetaminophen/ Hydrocodone Bitart 1 tab Q4HP PRN PO 08/24/24 18:45 08/24/24 22:46 1 TAB Hydromorphone HCl 0.5 mg Q4HP PRN IV 08/24/24 18:45 08/26/24 17:11 0.5 MG Ondansetron HCl 4 mg Q4HP PRN IV 08/24/24 18:45 Nitroglycerin 0.4 mg Q5MINP PRN SL 08/24/24 18:45 Morphine Sulfate 2 mg Q30M PRN IV 08/24/24 18:45 Pantoprazole Sodium 40 mg DAILY IV 08/26/24 10:00 08/26/24 10:38 40 MG Alprazolam 0.25 mg Q8HP PRN PO 08/26/24 10:00 laboratory and microbiology Laboratory Tests 08/27/24 05:48 Test 08/27/24 05:48 Range/Units Serum Glucose 92 74-106 mg/dL Problem List CHEST PAIN PANCYTOPENIA ? MYELODYSPLASTIC SYNDROME/ LEUKEMIA CHRONIC PAIN LUCIANO HX OF HTN STRESS CARDIOLITE NL ECHO EF >55% Assessment/Plan HEMATOLOGY CONSULT BONE MARROW BIOPSY TRANSFUSE NON CARDIAC CHEST PAIN SECONDARY TO SEVERE ANEMIA HIGH OUTPUT SYNDROME REVERSE ISOLATION S/P BONE MARROW BX Plan discussed with: Patient CC Plasma Assessment Blood Product Administration S: [id number] EMILY MUKHERJEE MD Aug 27, 2024 08:19
[2024-08-27 08:46] LABS: Urine Blood Negative /uL (Negative); Urine Clarity Turbid (Clear); Urine Color Yellow (Yellow); Urine Mucus MODERATE (None Seen); Urine Protein, UAD TRACE (Negative); Urine Squamous Epithelial Cell FEW /hpf (<5); Urine Urobilinogen Normal (Negative); Urine WBC 3 /HPF (0-3); Urine pH 5.5 (5.0-9.0)
[2024-08-27 10:14] LABS: Blast Cells 48; Lymphocytes % (manual) 42 (10.0-50.0); Monocytes % (manual) 4 (0-12); Platelet Estimate Decreased
--- NOTE | 2024-08-27 12:00 | DVHPN2 ---
Subjective Patient reports generalized weakness. Reviewed: Care Plan, H&P, Medications Changes from previous H/P or p: No Changes General: Per HPI Objective Vitals Vital Signs Date Time Temp Pulse Resp B/P (MAP) Pulse Ox O2 Delivery O2 Flow Rate FiO2 08/27/24 09:00 98.0 65 18 131/73 (92) 98 98.0 08/27/24 08:00 Room Air* 0 21 Intake/Output Intake and Output 08/27/24 07:00 Intake Total 1250 ml Balance 1250 ml Intake Oral 1250 ml # Voids 8 # Bowel Movements 1 General Appearance: Alert, Oriented X3, Cooperative, mild distress HEENT: Atraumatic, PERRLA Lungs: Clear to auscultation, Normal air movement Cardiovascular: Normal S1, Normal S2 Abdomen: Normal bowel sounds, Soft, No tenderness, No hepatospenomegaly Back: Flank Tenderness, Midline Tenderness Extremities: No clubbing, No cyanosis Neuro: Normal gait, Normal speech Skin: Dry, Intact Psych/Mental Status: Mental status NL, Mood NL Medications Current Medications Medications Dose Ordered Sig/Issa Route Start Time Stop Time Status Last Admin Dose Admin Sodium Chloride 10 ml Q8HR IV 08/24/24 22:00 08/27/24 05:50 10 ML Acetaminophen 650 mg Q6HP PRN PO 08/24/24 18:45 Acetaminophen/ Hydrocodone Bitart 1 tab Q4HP PRN PO 08/24/24 18:45 08/24/24 22:46 1 TAB Hydromorphone HCl 0.5 mg Q4HP PRN IV 08/24/24 18:45 08/26/24 17:11 0.5 MG Ondansetron HCl 4 mg Q4HP PRN IV 08/24/24 18:45 Nitroglycerin 0.4 mg Q5MINP PRN SL 08/24/24 18:45 Morphine Sulfate 2 mg Q30M PRN IV 08/24/24 18:45 Pantoprazole Sodium 40 mg DAILY IV 08/26/24 10:00 08/27/24 09:44 40 MG Alprazolam 0.25 mg Q8HP PRN PO 08/26/24 10:00 Laboratory Results Laboratory Tests 08/27/24 05:48 Chemistry Test 08/27/24 05:48 Albumin 4.4 g/dL (3.2-4.8) Calcium Level 9.4 mg/dL (8.7-10.4) Total Protein 6.5 g/dL (5.7-8.2) LFT Test 08/27/24 05:48 Alanine Aminotransferase (ALT) 14 U/L (7-40) Alkaline Phosphatase 50 U/L (46-116) Aspartate Amino Transferase (AST) 17 U/L (13-40) Total Bilirubin 0.9 mg/dL (0.2-1.0) Urinalysis Test 08/27/24 07:32 Urine Color Yellow (Yellow) Urine Clarity Turbid (Clear) H Urine pH 5.5 (5.0-9.0) Urine Specific [place] 1.030 (1.001-1.035) Urine Protein Trace (Negative) H Urine Ketones 1+ (Negative) H Urine Blood Negative /uL (Negative) Urine Nitrite Negative (Negative) Urine Bilirubin Negative (Negative) Urine Urobilinogen Normal mg/dL (Negative) Urine Leukocyte Esterase Negative /uL (Negative) Urine RBC 2 /hpf (0 - 3) Urine Microscopic WBC 3 /HPF (0-3) Urine Squamous Epithelial Cells Few /hpf (<5) Urine Bacteria None seen /hpf (None Seen) Urine Mucus Moderate (None Seen) Urine Glucose Normal mg/dL (Normal) Labs and/or images reviewed: Labs reviewed by me, Image(s) reviewed by me Assessment/Plan Assessment/Plan Impression: -chest pain -pancytopenia -chronic pain syndrome -history of spinal surgery -obesity -rule out acute leukemia/versus myelodysplastic syndrome Plan: -events: Long discussion made with the patient regarding differential diagnosis including leukemia and myelodysplastic syndrome. Given the patient's worsening neutropenia, patient will be placed in reverse isolation. Flow cytometry currently pending. -hematology consultation -check LDH, vitamin-D, B12, folic acid, haptoglobin, direct indirect Ranjana test -continue with additional 2 units PRBC -peripheral stain -repeat labs in a.m. Total time spent with patient discussing and formulating plan of care: 35 minutes. This medical document was created using an electronic medical record system with [employer] system. Although this document has been carefully reviewed, there may still be some phonetic and typographical errors. These areas are purely typographical due to imperfections of the software programs, and do not reflect any compromise in the patient's medical care. Plan discussed with: Patient, Other (RN) Date of Service: Aug 27, 2024 Billing Provider: ANTHONY DIAZ NP Common Visit Codes: [id number] INP/OBS CARE(HIGH) ANTHONY DIAZ NP Aug 27, 2024 12:00
[2024-08-27] MEDS: LOPERAMIDE HCL 2 MG CAP/TAB PO PRN (12:58)
[2024-08-27] MEDS: ALPRAZolam 0.25 MG TAB PO PRN (15:52)
[2024-08-28 05:00] VITALS: BP 112/55; PULSE 67; RESP 18; TEMP 98; O2SAT 100
[2024-08-28 07:51] LABS: Hematocrit 21.7 % (41.0-53.0); Hemoglobin 7.7 g/dL (13.5-17.5); Mean Corpuscular Hemoglobin 31.4 pg (28.0-32.0); Mean Corpuscular Hgb Conc. 35.4 g/dL (32.0-36.0); Mean Corpuscular Volume 88.6 fL (80.0-100.0); Platelet Count (auto) 97 10^3/uL (140-450); Red Blood Cells 2.45 10^6/uL (4.5-5.90); Red Cell Distribution Width 18.4 % (11.8-14.3)
[2024-08-28 08:04] LABS: White Blood Cell 1.6 10^3/uL (4.4-10.8)
[2024-08-28 08:05] LABS: Band Neutrophils % (manual) 0; Basophils % (manual) 0 (0.0-2.0); Eosinophils % (manual) 0 (0-7); Metamyelocytes % 0; Myelocytes % 0; Promyelocytes % 0
[2024-08-28 08:06] LABS: Alanine Aminotransferase 15 U/L (7-40); Albumin 4.3 g/dL (3.2-4.8); Alkaline Phosphatase 50 U/L (46-116); Anion Gap 11 (5-15); Aspartate Aminotransferase 15 U/L (13-40); Blood Urea Nitrogen 15 mg/dL (9-23); Calcium 9.5 mg/dL (8.7-10.4); Carbon Dioxide 22 mmol/L (20-31); Glucose 95 mg/dL (74-106); Sodium 141 mmol/L (136-145); Total Protein 6.4 g/dL (5.7-8.2)
[2024-08-28 08:07] LABS: Bilirubin, Total 1.1 mg/dL (0.2-1.0)
[2024-08-28 08:08] LABS: Chloride 108 mmol/L (98-107); Potassium 3.4 mmol/L (3.5-5.1)
[2024-08-28 08:25] LABS: BUN/Creatinine Ratio 17.4 (10.0-20.0)
[2024-08-28 09:00] VITALS: BP 126/61; PULSE 66; RESP 17; TEMP 97.7; O2SAT 96
[2024-08-28 09:22] LABS: Blast Cells 37; Lymphocytes % (manual) 43 (10.0-50.0); Monocytes % (manual) 2 (0-12); Reactive Lymphocytes 1
[2024-08-28 09:26] LABS: Platelet Estimate Decreased
[2024-08-28 13:00] VITALS: BP 111/54; PULSE 72; RESP 20; TEMP 97.8; O2SAT 97
[2024-08-28 13:07] LABS: Vitamin D 25-Hydroxy 27 ng/mL (.); Vitamin D-2 25-Hydroxy <1.0 ng/mL (.); Vitamin D-3 25-Hydroxy 26 ng/mL (.)
--- NOTE | 2024-08-28 13:31 | DVHSR ---
APPROVED REPORT EXAM: Two-dimensional and M-mode echocardiogram with Doppler and color Doppler. Blood Pressure: 121/41 mmHg INDICATION Chest Pain Rule out ACS RISK FACTORS Height: 5'5", Weight: 195 DIMENSIONS LVDd5.2 (3.8-5.7cm)LA (2D)5.1 (1.9-4.0cm)Aortic Root4.3 (2.0-3.7cm) LVDs3.4 (2.5-4.0cm)LA (MM) (1.9-4.0cm)Aortic Cusp Exc1.9 (1.5-2.0cm) EF (%) 65.0 (55-70%)Rt. Atrium4.4 (1.9-4.0cm)Asc. Aorta cm IVSd1.0 (0.7-1.1cm)RV (D) (1.8-2.4cm) PWd1.1 (0.7-1.1cm) Mitral Valve MitralMitral Stenosis E wave1.23m/sMV Mean GR.mmHg A wave1.04m/sMV Peak GR.mmHg E/A ratio1.22D MVAcm2 DECEL [id number] 1/2 [place] Aortic Valve Aortic ValveAortic Stenosis V11.15m/[place] Mean GR.9mmHg V22.00m/[place] Peak GR.16mmHg LVOT Diameter2.3 (1.8-2.4cm)Doppler AVA2.39cm2 Pulmonic Valve V21.21m/s Conclusion LAE MARGRET EF >55% TRACE AI
--- NOTE | 2024-08-28 14:34 | DVHPN2 ---
Progress Note - Dictate Date Seen: Aug 28, 2024 Medical Necessity Reason Pt with a Central, PICC or Fol: No Subjective PT WITH CHEST PAIN PANCYTOPENIA ? MYELODYSPLASTIC SYNDROME/ LEUKEMIA CHRONIC PAIN LUCIANO HX OF HTN STRESS CARDIOLITE NL ECHO EF >55% vital signs Vital Sign Date Time Temp Pulse Resp B/P (MAP) Pulse Ox O2 Delivery O2 Flow Rate FiO2 08/28/24 13:00 97.8 72 20 111/54 (73) 97 97.8 08/28/24 08:00 Room Air* 0 21 Total Intake and Output 08/27/24 08/27/24 08/28/24 15:00 23:00 07:00 Intake Total 0 ml 1080 ml 220 ml Balance 0 ml 1080 ml 220 ml medications Current Medications Medications Dose Ordered Sig/Issa Route Start Time Stop Time Status Last Admin Dose Admin Sodium Chloride 10 ml Q8HR IV 08/24/24 22:00 08/28/24 13:55 10 ML Acetaminophen 650 mg Q6HP PRN PO 08/24/24 18:45 Acetaminophen/ Hydrocodone Bitart 1 tab Q4HP PRN PO 08/24/24 18:45 08/24/24 22:46 1 TAB Hydromorphone HCl 0.5 mg Q4HP PRN IV 08/24/24 18:45 08/26/24 17:11 0.5 MG Ondansetron HCl 4 mg Q4HP PRN IV 08/24/24 18:45 Nitroglycerin 0.4 mg Q5MINP PRN SL 08/24/24 18:45 Morphine Sulfate 2 mg Q30M PRN IV 08/24/24 18:45 Pantoprazole Sodium 40 mg DAILY IV 08/26/24 10:00 08/28/24 10:02 40 MG Alprazolam 0.25 mg Q8HP PRN PO 08/26/24 10:00 08/28/24 12:17 0.25 MG Loperamide HCl 2 mg Q6HP PRN PO 08/27/24 12:45 08/28/24 12:17 2 MG laboratory and microbiology Laboratory Tests 08/28/24 07:18 Test 08/28/24 07:18 Range/Units Serum Glucose 95 74-106 mg/dL Problem List CHEST PAIN PANCYTOPENIA ? MYELODYSPLASTIC SYNDROME/ LEUKEMIA CHRONIC PAIN LUCIANO HX OF HTN STRESS CARDIOLITE NL ECHO EF >55% Assessment/Plan HEMATOLOGY CONSULT BONE MARROW BIOPSY TRANSFUSE NON CARDIAC CHEST PAIN SECONDARY TO SEVERE ANEMIA HIGH OUTPUT SYNDROME REVERSE ISOLATION S/P BONE MARROW BX BONE MARROE BX C/W AML TRAN[facility] Plan discussed with: Patient Critical Care Time(min): 35 CC Plasma Assessment Blood Product Administration S: 0930 EMILY MUKHERJEE MD Aug 28, 2024 14:34
[2024-08-28] MEDS ORDERED: LORazepam 2MG/ML-1ML VIAL IV PRN (15:15)
--- NOTE | 2024-08-28 15:23 | DVHDS2 ---
Discharge Summary Date of Admission Aug 24, 2024 at 18:41 Date of Discharge: Aug 28, 2024 Admitting Diagnosis Chest pain Labs/Diagnostic Data: Laboratory Results Test 08/28/24 07:18 08/27/24 07:35 08/27/24 07:32 08/26/24 10:37 White Blood Count 1.6 10^3/uL (4.4-10.8) Red Blood Count 2.45 10^6/uL (4.5-5.90) Hemoglobin 7.7 g/dL (13.5-17.5) Hematocrit 21.7 % (41.0-53.0) Mean Corpuscular Volume 88.6 fL (80.0-100.0) Mean Corpuscular Hemoglobin 31.4 pg (28.0-32.0) Mean Corpuscular Hemoglobin Concent 35.4 g/dL (32.0-36.0) Red Cell Distribution Width 18.4 % (11.8-14.3) Platelet Count 97 10^3/uL (140-450) Mean Platelet Volume 8.2 fL (6.9-10.8) Neutrophils (%) (Auto) % (37.0-80.0) Lymphocytes (%) (Auto) % (10.0-50.0) Monocytes (%) (Auto) % (0.0-12.0) Basophils (%) (Auto) % (0.0-2.0) Neutrophils # (Auto) 10 ^3/uL (1.6-8.6) Lymphocytes # (Auto) 10 ^3/uL (0.4-5.4) Monocytes # (Auto) 10 ^3/uL (0-1.3) Differential Total Cells Counted 100.0 (100) Neutrophils % (Manual) 17 (37.0-80.0) Band Neutrophils % (Manual) 0 Lymphocytes % (Manual) 43 (10.0-50.0) Monocytes % (Manual) 2 (0-12) Eosinophils % (Manual) 0 (0-7) Basophils % (Manual) 0 (0.0-2.0) Metamyelocytes % (manual) 0 Myelocytes % (Manual) 0 Promyelocytes % (Manual) 0 Blast Cells % (Manual) 37 Reactive Lymphocytes 1 Platelet Estimate Decreased Sodium Level 141 mmol/L (136-145) Potassium Level 3.4 mmol/L (3.5-5.1) Chloride Level 108 mmol/L (98-107) Carbon Dioxide Level 22 mmol/L (20-31) Anion Gap 11 (5-15) Blood Urea Nitrogen 15 mg/dL (9-23) Creatinine 0.86 mg/dL (0.700-1.30) Glomerular Filtration Rate Calc 93 mL/min (>90) BUN/Creatinine Ratio 17.4 (10.0-20.0) Serum Glucose 95 mg/dL (74-106) Calcium Level 9.5 mg/dL (8.7-10.4) Total Bilirubin 1.1 mg/dL (0.2-1.0) Aspartate Amino Transferase (AST) 15 U/L (13-40) Alanine Aminotransferase (ALT) 15 U/L (7-40) Alkaline Phosphatase 50 U/L (46-116) Total Protein 6.4 g/dL (5.7-8.2) Albumin 4.3 g/dL (3.2-4.8) Stool Occult Blood Negative (Negative) Stool Occult Blood Sample #3 (Negative) Urine Color Yellow (Yellow) Urine Clarity Turbid (Clear) Urine pH 5.5 (5.0-9.0) Urine Specific [place] 1.030 (1.001-1.035) Urine Protein Trace (Negative) Urine Ketones 1+ (Negative) Urine Blood Negative /uL (Negative) Urine Nitrite Negative (Negative) Urine Bilirubin Negative (Negative) Urine Urobilinogen Normal mg/dL (Negative) Urine Leukocyte Esterase Negative /uL (Negative) Urine RBC 2 /hpf (0 - 3) Urine Microscopic WBC 3 /HPF (0-3) Urine Squamous Epithelial Cells Few /hpf (<5) Urine Bacteria None seen /hpf (None Seen) Urine Mucus Moderate (None Seen) Urine Glucose Normal mg/dL (Normal) Prothrombin Time 11.5 sec (9.3-11.8) Prothrombin Time INR 1.09 (0.9-1.15) Activated Partial Thromboplast Time 25.9 SEC (24.5-34.5) Test 08/26/24 05:18 08/25/24 17:10 08/25/24 05:10 08/24/24 19:08 Large Platelets Few Haptoglobin 271 mg/dL (34-355) Vitamin D 25-Hydroxy 27 ng/mL (.) 25-Hydroxy Vitamin D2 <1.0 ng/mL (.) 25-Hydroxy Vitamin D3 26 ng/mL (.) Lactate Dehydrogenase 236 U/L (120-246) Reticulocyte Count (auto) 3.15 % (0.5-1.5) Iron Level 125 ug/dL (65-175) Total Iron Binding Capacity 259 ug/dL (250-425) Percent Iron Saturation 48.3 % (20-55) Ferritin 590.1 ng/mL (22-322) Vitamin B12 Level 252 pg/mL (211-911) Folic Acid 14.18 ng/mL (>5.38) Test 08/24/24 14:44 08/24/24 14:00 Troponin I High Sensitivity 4 ng/L (</=54) Anisocytosis (manual) Slight D-Dimer, Quantitative 0.63 mg/L FEU (0.0-0.49) B-Type Natriuretic Peptide 100.58 pg/mL (0-100) Other Laboratory Tests 08/28/24 07:18 Brief Hx & Hospital Course: History of Present Illness 69 y/o obese M, with a Hx of neuropathy, presents with relative for c/o nonradiating, sternal chest pain and shortness of breath for 2x weeks, today. Patient reports on ongoing symptoms following initial onset. He describes pain as aching in quality and rates it a 6/10 in severity, with no prior history of in the past. Patient also c/o occasional headaches whenever he is outside in the sun for an extended duration of time. Patient endorses on FMHx of MD through his father and brother. He denies any nausea. vomiting, fever, chills, or other associated symptoms or modifiers at this time. Course of hospitalization: Patient was found to be severely anemic, and after receiving 2 units of PRBCs, patient's anemia persisted with hemoglobin continued to be 4.7. Patient received two more units of PRBCs. Patient was also found to be pancytopenic, with severe neutropenia, as well as lymphocytosis. Patient had peripheral blood smear, LDH, haptoglobin, direct indirect Ranjana test. 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 Oncology consultation was obtained. Long discussion was made with the patient was family who are agreeable to have patient to be transferred to higher level of care. Report was given to Dr. Petty at [facility]. Patient has been accepted. Patient will be transferred this afternoon for further treatment including chemotherapy. All questions answered. Physical examination General: Alert and Oriented x3. No acute distress. Well-nourished. Eyes: EOMI. Anicteric. HENT: Moist mucous membranes. Lungs: Clear to auscultation bilaterally. No accessory muscle use. Cardiovascular: Regular rate and rhythm. No murmur. No JVD. Abdomen: Soft, non-tender and non-distended. No palpable masses. Extremities: No edema. Non-tender. Skin: No rashes or lesions. Warm. Neurologic: No focal neurological deficits. CN II-XII grossly intact, but not individually tested. Psychiatric: Cooperative. Appropriate mood and affect. Total time spent with patient discussing and formulating plan of care: 35 minutes. This medical document was created using an electronic medical record system with [employer] system. Although this document has been carefully reviewed, there may still be some phonetic and typographical errors. These areas are purely typographical due to imperfections of the software programs, and do not reflect any compromise in the patient's medical care. Condition at Discharge: Poor Final Diagnosis/Problems List AML Secondary diagnosis: -chest pain secondary to severe anemia -pancytopenia -chronic pain syndrome -history of spinal surgery -obesity Discharge Disposition: Acute Care Facility Discharge Instruct/Medications Diet: Regular Activity: No Restrictions, As Tolerated Follow Up/Referral: Per accepting provider Medications: See med rec form 36 Discharge Statement: "Patient was advised to return to the ER or call 911 if any headaches, dizziness, shortness of breath, chest pain, abdominal pain, bleeding, fevers, or worsening of medical condition. Patient was counseled about treatment plan, medications, possible side effects, patientverbalized understanding. All questions were answered to the best of my ability. This discharge took greater then 30 minutes in planning, reviewing documentation, counseling the patient, and discussing with other team members." ASSESSMENT ASSESSMENT Assessment AML Date of Service: Aug 28, 2024 Billing Provider: ANTHONY DIAZ NP Common Visit Codes: [id number] DISCH DAY >30min ANTHONY DIAZ NP Aug 28, 2024 15:23
[2024-08-28] MEDS: LORazepam 2MG/ML-1ML VIAL IV PRN (16:14)
[2024-08-28 17:00] VITALS: BP 102/66; PULSE 73; RESP 20; TEMP 98.2; O2SAT 99
[2024-09-01 03:07] LABS: Vitamin B1, Whole Blood 53.4 nmol/L (66.5-200.0)
== END 2024-08-28 18:09 | disposition short-term general hospital (02) | DRG 835 ==
LOC: ER 13:56 → OVERFLOW 18:41 → WEST WING 08-25 18:03 → TELE-WESTW 08-25 20:17 → TELE-EAST 08-27 17:25
PROVIDERS: ADMIT Nurse Practitioner Acute Care; ATTEND Nurse Practitioner Acute Care
PROC: 30233N1 Transfusion of Nonautologous Red Blood Cells into Peripheral Vein, Percutaneous Approach (ICD-10-PCS; principal; 2024-08-24)
PROC: 07DR3ZX Extraction of Iliac Bone Marrow, Percutaneous Approach, Diagnostic (ICD-10-PCS; 2024-08-26)
DX: C92.00 Acute myeloblastic leukemia, not having achieved remission (principal); D61.818 Other pancytopenia; I51.3 Intracardiac thrombosis, not elsewhere classified; E66.9 Obesity, unspecified; G89.4 Chronic pain syndrome; I10 Essential (primary) hypertension; G62.9 Polyneuropathy, unspecified; Z79.899 Other long term (current) drug therapy; Z68.33 Body mass index [BMI] 33.0-33.9, adult
CPT/HCPCS: 10005; 36415; 36430; 71046; 71275; 72192; 77012; 80053; 81001; 82270; 82306; 82607; 82728; 82746; 83010; 83540; 83550; 83615; 83880; 84425; 84484; 85007; 85014; 85018; 85027; 85045; 85060; 85379; 85610; 85730; 86850; 86880; 86900; 86901; 86920; 93005; 93306; 99291; G0378; J2003; J2250; J2470